=== PATIENT | female | born 1955 | race Caucasian/White ===

== ENCOUNTER 2017-01-20 11:16 | Inpatient (IN) | payer OTHER ==
--- NOTE | ~2017-01-20 | DS ---
Unit #: [id number] #: [id number] Patient: NEETU FAROOQ [id number] [address] [place], [place] [address] [id number] I MR#: [id number] NAME: NEETU FAROOQ ROOM: 551 Age: 61 Sex: F Admission Date: 01/20/2017 : 1955 Discharge Date: 01/30/2017 Attending Physician: Gokul Chavarria M.D. Primary Care Physician: [facility] DISCHARGE SUMMARY ADDENDUM ADMITTING DIAGNOSES 1. Acute hypoxemic respiratory failure, slow to improve. 2. History of smoking. 3. History of chronic obstructive pulmonary disease. COMMUNITY SERVICE SPECIALIST Dr. Yang. Kindly note, I did a discharge summary on January 26, 2017, and this is an addendum to that discharge summary. Patient was slow to improve. She was on high-dose of steroids. As she was slow to improve to make sure she does not have any PE, she did have a CT angiogram of the chest which came back as negative for PE. She is doing clinically better, and she has a bed in [facility]. The plan is to discharge her to [facility] for further care. I spoke with the patient and she is agreeable for that. PHYSICAL EXAMINATION On the day of the discharge, her physical examination: VITAL SIGNS: Temperature 97.8, pulse rate 54, respirations 16, blood pressure 111/54. GENERAL: Patient is alert, oriented x3, lying in the bed in no acute distress. HEENT: Normocephalic and atraumatic. No icterus. PERRLA. Extraocular muscles intact. NECK: Supple. No JVD. HEART: S1, S2. Bradycardic. CHEST: Bilateral equal air entry. Clear to auscultation. ABDOMEN: Soft, nontender. EXTREMITIES: No edema. Normal pulses. DISCHARGE MEDICATIONS 1. Slow tapering of prednisone. 2. Albuterol 3 mL nebulizations q.2 p.r.n. for shortness of breath. 3. Budesonide formoterol one puff twice a day. 4. Tylenol p.r.n. 5. Spiriva 18 mcg inhalation daily. 6. Tessalon Perles p.r.n. 7. Robitussin syrup 10 mL q.6 p.r.n. for cough. 8. Nicotine 14 mg topical patch daily. 9. Dulera 200/5 mcg inhalation two puffs twice daily. Unit #: [id number] #: [id number] Patient: NEETU FAROOQ 10. Lasix 40 mg twice a day. 11. Humibid LA 600 mg twice a day. 12. Phenol spray for sore throat. 13. Protonix 40 mg daily. 14. [place] Nasal [place]. FOLLOWUP The patient is requested to follow with her primary care after discharge from [facility]. In [facility], if possible please request that pulmonary also to evaluate the patient. I spoke with the spring encaser and she has arranged for the transportation. Total time spent in her discharge, 35 minutes. Dictated by... Wilbert Martines TD: 01/30/2017 11:58 JOB #: [id number] DISCHARGE SUMMARY Page 1 of 1 X X DISCHARGE SUMMARY
--- NOTE | ~2017-01-20 | CR72 ---
[facility] A Service of [facility] & [facility] RADIOLOGY TEXT RESULTS PATIENT: NEETU FAROOQ LOCATION: [place] [address] : [birth year] UNIT #: [id number] AGE: [address]: Gokul Chavarria MD SEX: F ORDER DR: [id number] [facility] [address] [facility]. [place], [place] [address] [id number] I MR#: [id number] Acc #: [id number] NAME: NEETU FAROOQ : 1955 SEX: F STUDY DATE/TIME: 01/22/2017 4:39 UNIT: [facility] ROOM: [facility] STUDY DESCRIPTION: CR Chest Single View Portable Attending Physician: Gokul Chavarria M.D. Ordering Physician: Aditi Yang M.D. Primary Care Physician: [facility] MEDICAL IMAGING REPORT This report is preliminary unless electronic signature is present EXAM AP portable chest 01/22/2017 HISTORY 61-year-old female complaining of 4-5 day history of shortness of air, weakness and cough. Follow up inpatient pulmonary status. TECHNIQUE AP portable upright chest x-ray. FINDINGS The exam shows no change since yesterday. Stable mild cardiomegaly with normal pulmonary vascularity. No pulmonary infiltrate or pleural effusion. IMPRESSION No active disease. Stable mild cardiomegaly. Dictated by... Misael Johnson M.D. THIS IS AN ELECTRONICALLY VERIFIED REPORT Misael Johnson M.D. at 01/22/2017 9:53 PM DUNCAN/ronnie TD: 01/22/2017 06:59 JOB #: [id number] MEDICAL IMAGING REPORT Page 1 of 1 COPY
--- NOTE | ~2017-01-20 | BMI ---
[facility] Nutrition Therapy DATE: 01/21/17 Patient: NEETU FAROOQ Physician: MARNIE Address: [address] Room/Bed: [address] [place] [address], Zip: [place] [address] Admit Date: 01/20/17 Date of : [birth year] Height: 5 0 Weight: 217 98.6 HIGH BMI NOTE: DX: 61 y/o female admitted with SOA ANTHROPOMETRICS: Ht: 60", Wt: 98.6 kg, BMI: 24.4 (normal) DIET: Healthy heart INTERVENTION: Restricted diet, meds/fluids per MD RECOMMENDATIONS: Continue current diet to promote a gradual weight loss towards a healthy BMI range. Respectfully, Basia Marina RD, LD Food and Nutritional Services [facility] cc: client file
--- NOTE | ~2017-01-20 | CO ---
Unit #: [id number] #: [id number] Patient: ODALIS FAROOQ [id number] [address] [address] [id number] I MR#: [id number] NAME: ODALIS FAROOQ. ROOM: 26253 Age: 61 Sex: F Admission Date: 01/20/2017 : 1955 Attending Physician: Odalis Blackmon M.D. Primary Care Physician: [facility]. CONSULTATION REPORT REASON FOR CONSULTATION Respiratory failure. CHIEF COMPLAINT Shortness of breath. HISTORY OF PRESENT ILLNESS A 61-year-old female with past medical history of COPD, chronic respiratory failure, presented to the emergency department with complaint of shortness of breath for the last two to three days. Symptoms have been getting worse. The patient was found to be hypoxic. I am seeing the patient at the bedside. PAST MEDICAL HISTORY Respiratory failure, COPD exacerbation. PAST SURGICAL HISTORY Appendectomy. SOCIAL HISTORY The patient lives with . FAMILY HISTORY Positive for COPD. ALLERGIES Potassium chloride and aspirin. HOME MEDICATION 1. Lasix. 2. Spiriva. 3. Albuterol. 4. Symbicort. PHYSICAL EXAMINATION VITAL SIGNS: Temperature 98. Pulse 87. Respiration 12. Blood pressure 130/70. NEUROLOGIC: Awake, alert, oriented. No neuro deficit. HEENT: PERRLA. NECK: Supple. No JVD. CHEST: Bilateral air entry. Bilateral mild rhonchi. GASTROINTESTINAL: Nontender. Soft. Positive bowel sounds. EXTREMITIES: No edema. Unit #: [id number] #: [id number] Patient: ODALIS FAROOQ DIAGNOSTIC STUDIES Labs and imaging have been reviewed. ASSESSMENT AND PLAN Acute hypoxic, hypercapnic respiratory failure, acute exacerbation of COPD, acute bronchitis, volume overload. The plan is to continue the patient on IV steroid, IV antibiotic, bronchodilator and diuretic. Please see orders for detailed plan. Thank you very much for this consultation. We will continue to follow the patient. Dictated by... Aditi Yang M.D. Yfn TD: 01/20/2017 16:36 JOB #: [id number] CONSULTATION REPORT Page 1 of 1 X Aditi Yang MD CONSULTATION REPORT
--- NOTE | ~2017-01-20 | EKG ---
PATIENT: NEETU FAROOQ UNIT #: [id number] Ventricular Rate: 84 BPM Atrial Rate: 84 BPM P-R Interval: 138 ms QRS Duration: 78 ms Q-T Interval: 350 ms QTC Calculation(Bezet): 413 ms P [place]: 66 degrees Calculated R [place]: 126 degrees Calculated T [place]: 66 degrees Diagnosis Line: Normal sinus rhythm Diagnosis Line: Right axis deviation Diagnosis Line: Abnormal ECG Diagnosis Line: When compared with ECG of 09-OCT-2016 14:35, Diagnosis Line: Premature ventricular complexes are no longer Diagnosis Line: Present Diagnosis Line: Questionable change in QRS axis Diagnosis Line: Confirmed by DAMARI SCHROEDER MD ([id number]) on Diagnosis Line: 01/20/2017 12:53:31 PM INTERPRETING MD: LUPILLO
--- NOTE | ~2017-01-20 | HP ---
Unit #: [id number] #: [id number] Patient: ODALIS FAROOQ [id number] [address] [address] [id number] I MR#: [id number] NAME: ODALIS FAROOQ ROOM: 46709 Age: 61 Sex: F Admission Date: 01/20/2017 : 1955 Attending Physician: Odalis Balckmon M.D. Primary Care Physician: [facility] HISTORY AND PHYSICAL CHIEF COMPLAINT Short of air. HISTORY OF PRESENT ILLNESS The patient is a 61-year-old female, with past medical history of chronic obstructive pulmonary disease, chronic respiratory failure, who presented to the emergency department for evaluation of the above. The patient states that she has had a one day of increasing shortness of breath and productive cough. She denies any chest pain. She states that she has had chills but no documented fever. She continues to smoke. She reports nausea but no vomiting. Upon arrival in the emergency department, the patient's oxygen saturation was 82% on her home three liters. Chest x-ray showed nothing acute. She was given 125 mg of Solu-Medrol. She is being admitted to [facility] for evaluation and further treatment. PAST MEDICAL HISTORY 1. Admission to [facility], May 13, 2016 for chronic obstructive pulmonary disease exacerbation requiring intubation. 2. Chronic respiratory failure on three liters of oxygen per nasal cannula followed by Dr. Iván M.D. 3. Chronic obstructive pulmonary disease. PAST SURGICAL HISTORY Appendectomy. SOCIAL HISTORY The patient lives with her . She continues to smoke a few cigarettes daily. She denies alcohol use. She is unemployed. Her code status is a fully code. FAMILY HISTORY Notable for both parents having chronic obstructive pulmonary disease. ALLERGIES Potassium chloride, aspirin. HOME MEDICATIONS 1. Furosemide 40 mg daily p.r.n. 2. Spiriva inhaled daily Unit #: [id number] #: [id number] Patient: ODALIS FAROOQ 3. Albuterol four times daily 4. Symbicort 160/4.5 inhaled twice daily REVIEW OF SYSTEMS A complete review of systems is negative except as indicated in the history of present illness. The patient states that she was told that she had congestive heart failure during the last admission. I don't see an echocardiogram in [facility]. The patient states that she has had intermittent lower extremity swelling. The patient denies recent antibiotic or steroid use. She states that she did receive a flu shot in the fall. DIAGNOSTIC TESTS CARDIOVASCULAR: EKG shows normal sinus rhythm with a rate of 84 beats per minute. IMAGING: Chest x-ray shows no acute abnormality. LABORATORY: Troponin is less than 0.05. Complete blood count notable for a blood cell count of 11.4. Comprehensive metabolic panel notable for a chloride of 93, bicarb is 32, BUN and creatinine 8 and 0.6 respectively, BNP is 30. PHYSICAL EXAMINATION VITAL SIGNS: Temperature is 98.6, pulse 96, respirations 25, blood pressure 131/54. Oxygen saturation is 82% on three liters. GENERAL: The patient is a female who is awake and alert, and in no acute distress. HEENT: Head: Atraumatic. Mucous membranes are moist. NECK: Neck is supple. Trachea is midline. CARDIOVASCULAR: Regular rate and rhythm. LUNGS: Lungs demonstrate inspiratory and expiratory wheezes, breathing is mildly labored with conversation. ABDOMEN: Soft, nontender, with bowel sounds present in all four quadrants. EXTREMITIES: Showed trace edema. NEUROLOGIC: The patient is awake and alert. She follows commands. PSYCH: Mood and affect are normal. The patient is cooperative. SKIN: Skin of examined areas is warm and dry. ASSESSMENT The patient is a 61-year-old female with: 1. Tqmsu-no-rgriwes respiratory failure, hypoxic. 2. Chronic obstructive pulmonary disease exacerbation. 3. Tobacco abuse. 4. Possible history of congestive heart failure (no echocardiogram results in [facility]). PLAN 1. Admit to intermediate level. 2. Healthy heart diet. 3. Supplemental oxygen, 2-4 liters to maintain saturations greater than 92%. 4. DuoNebs q.4h while awake and q.2h p.r.n. 5. Solu-Medrol 80 mg IV q.12h 6. Mucinex 600 mg p.o. b.i.d. 7. Doxycycline 100 mg p.o. b.i.d. for possible acute bronchitis. 8. Consult Dr. Yang regarding vlcji-lj-uvkuzoq respiratory failure. Unit #: [id number] #: [id number] Patient: ODALIS FAROOQ 9. Serial cardiac enzymes. 10. Get 2D echo report from last admission (April 2016). 11. SCDs for DVT prophylaxis. 12. Protonix for GI prophylaxis since the patient will be on Solu-Medrol. 13. Repeat labs in the morning. 14. Additional workup and consultants based on above. 15. Regarding code status, the patient is a full code. Dictated by Wilbert Nova/renan TD: 01/20/2017 14:03 JOB #: [id number] HISTORY AND PHYSICAL Page 1 of 1 X Odalis Blackmon MD X HISTORY AND PHYSICAL
--- NOTE | ~2017-01-20 | CT16 ---
[facility] A Service [facility] RADIOLOGY TEXT RESULTS PATIENT: NEETU FAROOQ LOCATION: [facility] : [birth year] UNIT #: [id number] AGE: [address]: Gokul Chavarria MD SEX: F ORDER DR: [id number] [facility] [address] [facility]. [place], [place] [address] [id number] I MR#: [id number] Acc #: [id number] NAME: NEETU FAROOQ : 1955 SEX: F STUDY DATE/TIME: 01/28/2017 15:52 UNIT: [facility] ROOM: [facility] STUDY DESCRIPTION: CT Angio Chest for PE Attending Physician: Gokul Chavarria M.D. Ordering Physician: Gokul Chavarria M.D. MEDICAL IMAGING REPORT This report is preliminary unless electronic signature is present EXAM CT scan of the chest with pulmonary embolus protocol HISTORY Shortness of air for a week. TECHNIQUE Patient was given 80 cc of Isovue-370 and spiral imaging was performed through the chest. 3-D reconstructions of the pulmonary arteries were generated. This CT exam was performed with one or more of the following radiation dose reduction techniques: automatic exposure control, adjustment of mA and/or kV according to patient size, and iterative reconstruction. COMPARISON STUDIES 05/15/2016. FINDINGS There is mild bibasilar atelectasis. Lungs are otherwise clear. Visualized thyroid gland is normal. The aorta is normal in size and no dissection. There is optimal opacification of the pulmonary arteries and there is no evidence of pulmonary embolus. The bones are unremarkable. The visualized portions of the upper abdomen are normal. IMPRESSION 1. Mild bibasilar atelectasis. 2. No evidence of pulmonary embolus. 3. Otherwise, normal. [facility] A Service [facility] RADIOLOGY TEXT RESULTS PATIENT: NEETU FAROOQ LOCATION: [facility] 5509-30 : 57 UNIT #: [id number] AGE: [address]: Gokul Chavarria MD SEX: F ORDER DR: Dictated by... Marcos Kirk M.D. THIS IS AN ELECTRONICALLY VERIFIED REPORT Marcos Kirk M.D. at 01/28/2017 8:02 PM FEL/pcl TD: 01/28/2017 18:35 JOB #: [id number] MEDICAL IMAGING REPORT Page 1 of 1 COPY
--- NOTE | ~2017-01-20 | CR72 ---
[facility] A Service of [facility] & [facility] RADIOLOGY TEXT RESULTS PATIENT: ODALIS FAROOQ LOCATION: [place] [address] : 57 UNIT #: [id number] AGE: [address]: Gokul Chavarria MD SEX: F ORDER DR: [id number] [facility] [address] [facility]. [place], [place] [address] [id number] I MR#: [id number] Acc #: [id number] NAME: ODALIS FAROOQ : 1955 SEX: F STUDY DATE/TIME: 01/21/2017 10:21 UNIT: [facility] ROOM: [facility] STUDY DESCRIPTION: CR Chest Single View Portable Attending Physician: Gokul Chavarria M.D. Ordering Physician: Odalis Blackmon M.D. [facility] MEDICAL IMAGING REPORT This report is preliminary unless electronic signature is present EXAM Chest portable, 01/21/2017 10:21 hours HISTORY 61-year-old with 3-day history of shortness of air, weakness and cough. History of CHF and asthma. COMPARISON 01/20/2017 FINDINGS Portable upright chest demonstrates stable rvnb-nf-dasldmvf cardiomegaly. Mediastinal, hilar and aortic contours are normal. The lungs are well expanded and clear of acute densities. Benign calcified granulomata are present. IMPRESSION Stable mild cardiomegaly and calcified granulomatous change. There are no acute pulmonary or pleural findings. Dictated by... Nata Odom M.D. THIS IS AN ELECTRONICALLY VERIFIED REPORT Nata Odom M.D. at 01/21/2017 2:28 PM Tony TD: 01/21/2017 10:58 JOB #: [id number] MEDICAL IMAGING REPORT Page 1 of 1 COPY
--- NOTE | ~2017-01-20 | EKG ---
PATIENT: NEETU FAROOQ UNIT #: [id number] Ventricular Rate: 68 BPM Atrial Rate: 68 BPM P-R Interval: 140 ms QRS Duration: 82 ms Q-T Interval: 396 ms QTC Calculation(Bezet): 421 ms P [place]: 58 degrees Calculated R [place]: 101 degrees Calculated T [place]: 61 degrees Diagnosis Line: Normal sinus rhythm Diagnosis Line: Rightward axis Diagnosis Line: Borderline ECG Diagnosis Line: When compared with ECG of 20-JAN-2017 10:50, Diagnosis Line: No significant change was found Diagnosis Line: Confirmed by DAMARI SCHROEDER MD ([id number]) on Diagnosis Line: 01/27/2017 8:54:58 AM INTERPRETING MD: LUPILLO
--- NOTE | ~2017-01-20 | CR71 ---
[facility] A Service of [facility] & [facility] RADIOLOGY TEXT RESULTS PATIENT: NEETU FAROOQ LOCATION: [place] [address] : [birth year] UNIT #: [id number] AGE: [address]: Gokul Chavarria MD SEX: F ORDER DR: [id number] [facility] [address] [facility]. [place], [place] [address] [id number] I MR#: [id number] Acc #: [id number] NAME: NEETU FAROOQ : 1955 SEX: F STUDY DATE/TIME: 01/23/2017 09:39 UNIT: [facility] ROOM: [facility] STUDY DESCRIPTION: CR Chest Single View Attending Physician: Gokul Chavarria M.D. Ordering Physician: Aditi Yang M.D. Primary Care Physician: [facility] MEDICAL IMAGING REPORT This report is preliminary unless electronic signature is present EXAM Chest portable, 01/23/2017 09:39 hours HISTORY 61-year-old woman with shortness of air, cough and COPD. Symptoms since 01/20/2017. COMPARISON 01/22/2017 FINDINGS Portable upright chest demonstrates stable mild cardiomegaly. The lungs are well expanded with stable calcified granulomata. No acute pulmonary or pleural findings. IMPRESSION Stable benign calcified granulomatous changes. No acute cardiopulmonary findings. No appreciable change from yesterday's exam. Dictated by... Nata Odom M.D. THIS IS AN ELECTRONICALLY VERIFIED REPORT Nata Odom M.D. at 01/23/2017 2:29 PM Tony TD: 01/23/2017 14:05 JOB #: [id number] MEDICAL IMAGING REPORT Page 1 of 1 COPY
--- NOTE | ~2017-01-20 | DS ---
Unit #: [id number] #: [id number] Patient: NEETU FAROOQ [id number] [address] [address] [id number] I MR#: [id number] NAME: NEETU FAROOQ ROOM: 55 Age: 61 Sex: F Admission Date: 01/20/2017 : 1955 Discharge Date: 01/26/2017 Attending Physician: Gokul Chavarria M.D. [facility] SUMMARY CONSULTING Dr. Yang ADMITTING DIAGNOSIS Acute hypoxic respiratory failure secondary to chronic obstructive pulmonary disease exacerbation and slow to improve. DISCHARGE DIAGNOSIS Same as above. HISTORY OF PRESENT ILLNESS Patient is a 61-year-old lady with a past medical history of COPD, history of smoking, chronic respiratory failure. Presented to the emergency room with the chief complaint of cough and shortness of breath on the . HOSPITAL COURSE She was started on oxygen. She was started on (1) steroids, p.r.n. breathing treatments. She was slow to improve. She was on BiPAP for a prolonged period, and currently she is off the BiPAP. She is still requiring 8 liters of oxygen. Pulmonary recommended to discharge her to pulmonary rehab. We are trying to arrange for her discharge to rehab today. PHYSICAL EXAMINATION ON THE DAY OF DISCHARGE VITAL SIGNS: Temperature 97.9, pulse rate 57, respirations 20, blood pressure 104/75. GENERAL: The patient is alert and oriented x3, lying in bed, no acute distress. HEENT: Normocephalic, atraumatic. No icterus. PERRLA. Extraocular muscles intact. NECK: Supple. No JVD. HEART: S1, S2. Regular rate and rhythm. CHEST: Bilateral equal air entry. Clear to auscultation. ABDOMEN: Soft, nontender. EXTREMITIES: No edema. Normal pulses. DISCHARGE MEDICATIONS 1. Prednisone tapering dose. 2. Albuterol 3 mL nebulizations q.4-6 p.r.n. shortness of breath. 3. Ventolin 2 puffs q.6 p.r.n. shortness of breath. 4. Symbicort 160/4.5 mcg 1 puff b.i.d. 5. Spiriva 18 mcg inhalation daily. 6. Tessalon Perles 100 mg t.i.d. p.r.n. cough. 7. Robitussin p.r.n. cough. Unit #: [id number] #: [id number] Patient: NEETU FAROOQ 8. Nicotine 14 mg topical patch every evening. 9. Lasix 40 mg p.o. daily. 10. Humibid LA 600 mg b.i.d. 11. Protonix 40 mg daily. 12. [place] Nasal [place] at bedside q.4 hours p.r.n. 13. Dulera 200 mcg/5 mcg inhaler 2 puffs b.i.d. FOLLOWUP She is instructed to follow with pulmonary as an outpatient. NOTE: Total time spent in her discharge - 35 minutes. Dictated by... Wilbert Martines TD: 01/26/2017 13:26 JOB #: [id number] DISCHARGE SUMMARY Page 1 of 1 X X DISCHARGE SUMMARY
--- NOTE | ~2017-01-20 | CR72 ---
[facility] A Service of [facility] RADIOLOGY TEXT RESULTS PATIENT: NEETU FAROOQ LOCATION: [address] : [birth year] UNIT #: [id number] AGE: [address]: Gokul Chavarria MD SEX: F ORDER DR: [id number] [facility] [address] [facility]. [place], [place] [address] [id number] E MR#: [id number] Acc #: [id number] NAME: NEETU FAROOQ : 1955 SEX: F STUDY DATE/TIME: 01/20/2017 11:03 UNIT: [facility] ROOM: STUDY DESCRIPTION: CR Chest Single View Portable Attending Physician: Michele Patiño Ordering Physician: Ed Doctor [id number] [facility] Primary Care Physician: [facility] MEDICAL IMAGING REPORT This report is preliminary unless electronic signature is present EXAM Portable chest INDICATIONS Shortness of air and cough today. PROCEDURE Frontal view of the chest. COMPARISON 10/09/2016 FINDINGS Heart size is probably unchanged when allowing for rotation. There is no dense consolidation, effusion or pneumothorax. IMPRESSION Stable cardiomegaly. No active process. Dictated by... Gagandeep Allen M.D. THIS IS AN ELECTRONICALLY VERIFIED REPORT Gagandeep Allen M.D. at 01/21/2017 9:43 AM ALETHEA/tamica TD: 01/20/2017 13:25 JOB #: [id number] MEDICAL IMAGING REPORT Page 1 of 1 COPY
[~2017-01-20 11:16] MED LIST: ALBUTEROL MININEB NEB; DELTASONE20 MG PO; LASIX PO; LASIX20 MG PO; MORGIDOX100 MG PO; NICOTINE P1 PATCH .1 TD; PREDNISONE PO; PROVENTIL2 MG; SYMBICORT INH; VENTOLIN5 MG/ML INH; [UNRECOGNIZED DRUG - OTHER]
[2017-01-20 11:30] LABS: POC - CKMB 2.2 ng/mL (0.0-7.9); POC - TROPONIN <0.05 ng/mL (<=0.05)
[2017-01-20 11:33] LABS: BASOPHIL# 0.1 X10e3 (0-0.3); BASOPHIL% 0.5 % (0-2.5); EOSINOPHIL# 0.1 X10e3 (0-0.7); HEMATOCRIT 44.3 % (35.0-45.0); HEMOGLOBIN 14.2 gm/dL (12.0-16.0); LYMPHOCYTE# 1.9 X10e3 (1.0-3.5); LYMPHOCYTE% 16.4 % (17.0-45.0); MEAN CELL VOLUME 91.9 FL (83-96); MEAN CORPUSCULAR HEMOGLOBIN 29.5 PG (28-34); MEAN CORPUSCULAR HGB CONC 32.1 g/dL (30-36); MEAN PLATELET VOLUME 9.7 FL (6.5-11.5); MONOCYTE# 1.4 X10e3 (0-1.0); MONOCYTE% 12.4 % (3.0-12.0); NEUTROPHIL# 7.9 X10e3 (1.5-7.1); NEUTROPHIL% 69.7 % (40-75); PLATELET COUNT 220 X10e3 (140-420); RED BLOOD COUNT 4.82 X10e (3.90-5.30); RED CELL DISTRIBUTION WIDTH 14.1 % (11.0-15.5); WHITE BLOOD COUNT 11.4 X10e3 (4.0-10.5)
[2017-01-20 11:35] LABS: DIFF IND NO
[2017-01-20 11:51] LABS: ALBUMIN SERUM 4.3 g/dL (3.5-5.0); BILIRUBIN, DIRECT 0.1 mg/dL (0.0-0.2); BILIRUBIN,INDIRECT 0.5 mg/dL (0.0-0.9); BILIRUBIN,TOTAL 0.6 mg/dL (0.2-2.0); BUN/CREATININE RATIO 13.33; CALCIUM SERUM 9.3 mg/dL (8.4-10.2); CREATININE SERUM 0.6 mg/dL (0.6-1.4); GLOM FILT RATE Estimated 99.1 mL/min (>60); POTASSIUM 3.9 mmol/L (3.5-5.1); PROTEIN TOTAL SERUM 7.5 g/dL (6.0-8.3)
[2017-01-20] MEDS ORDERED: ALBUTEROL MININEB NEB (12:49)
[2017-01-20] MEDS ORDERED: SPIRIVA18 MCG INH (12:49)
[2017-01-20] MEDS ORDERED: FUROSEMIDE40 MG PO (12:49)
[2017-01-20] MEDS ORDERED: SYMBICORT INH (12:50)
[2017-01-20] MEDS ORDERED: ALBUTEROL17 GM INH (12:50)
[2017-01-20 19:14] LABS: %MB 6.3 % (0.0-4.0); MB 8.3 ng/ml
[2017-01-21 01:42] LABS: %MB 4.4 % (0.0-4.0); MB 11.1 ng/ml
[2017-01-21 04:53] LABS: INFLUENZA A NEG (NEG); INFLUENZA B NEG (NEG)
[2017-01-21 05:04] LABS: ARTERIAL BLD GAS O2 SATURATION 96.1 % (90.0-100.0); ARTERIAL BLOOD GAS MET HB 0.6 %sat (0.0-2.0); ARTERIAL BLOOD GAS pH 7.256 (7.350-7.450)
[2017-01-21 05:09] LABS: ARTERIAL BLOOD GAS ALLEN TEST NORMAL; ARTERIAL BLOOD GAS ART SITE LEFT RADIAL; ARTERIAL BLOOD GAS DELIVERY OXYMIZER; ARTERIAL BLOOD GAS PCO2 90.1 mmHg (35.0-45.0); ARTERIAL DRAW? YES
[2017-01-21 06:28] LABS: BASOPHIL% 0.2 % (0-2.5); HEMOGLOBIN 13.7 gm/dL (12.0-16.0); LYMPHOCYTE# 0.8 X10e3 (1.0-3.5); LYMPHOCYTE% 7.1 % (17.0-45.0); MEAN CELL VOLUME 91.1 FL (83-96); MEAN CORPUSCULAR HEMOGLOBIN 29.7 PG (28-34); MEAN CORPUSCULAR HGB CONC 32.6 g/dL (30-36); MEAN PLATELET VOLUME 9.3 FL (6.5-11.5); MONOCYTE# 0.3 X10e3 (0-1.0); MONOCYTE% 2.5 % (3.0-12.0); NEUTROPHIL# 9.7 X10e3 (1.5-7.1); NEUTROPHIL% 90.2 % (40-75); PLATELET COUNT 208 X10e3 (140-420); RED BLOOD COUNT 4.61 X10e (3.90-5.30); RED CELL DISTRIBUTION WIDTH 13.9 % (11.0-15.5); WHITE BLOOD COUNT 10.8 X10e3 (4.0-10.5)
[2017-01-21 06:37] LABS: DIFF IND NO
[2017-01-21 07:06] LABS: BILIRUBIN,TOTAL 0.5 mg/dL (0.2-2.0); BUN/CREATININE RATIO 23.33; CALCIUM SERUM 9.7 mg/dL (8.4-10.2); CREATININE SERUM 0.6 mg/dL (0.6-1.4); GLOM FILT RATE Estimated 99.1 mL/min (>60); POTASSIUM 4.5 mmol/L (3.5-5.1)
[2017-01-21 07:29] LABS: ARTERIAL BLD GAS O2 SATURATION 84.2 % (90.0-100.0); ARTERIAL BLOOD GAS CARBOXY HB 1.7 %sat (0.0-9.0); ARTERIAL BLOOD GAS HCO3 39.9 mmol/L; ARTERIAL BLOOD GAS MET HB 1.1 %sat (0.0-2.0); ARTERIAL BLOOD GAS pH 7.282 (7.350-7.450)
[2017-01-21 07:34] LABS: ARTERIAL BLOOD GAS ALLEN TEST NORMAL; ARTERIAL BLOOD GAS ART SITE RIGHT RADIAL; ARTERIAL BLOOD GAS DELIVERY BIPAP 14/6; ARTERIAL BLOOD GAS PCO2 84.7 mmHg (35.0-45.0); ARTERIAL BLOOD GAS PO2 68.8 mmHg (80.0-100); ARTERIAL DRAW? YES
[2017-01-21 13:03] LABS: ARTERIAL BLD GAS O2 SATURATION 94.2 % (90.0-100.0); ARTERIAL BLOOD GAS ALLEN TEST NORMAL; ARTERIAL BLOOD GAS ART SITE RIGHT RADIAL; ARTERIAL BLOOD GAS CARBOXY HB 0.6 %sat (0.0-9.0); ARTERIAL BLOOD GAS DELIVERY BIPAP 14/6; ARTERIAL BLOOD GAS HCO3 39.9 mmol/L; ARTERIAL BLOOD GAS MET HB 0.9 %sat (0.0-2.0); ARTERIAL BLOOD GAS PCO2 78.9 mmHg (35.0-45.0); ARTERIAL BLOOD GAS PO2 81.1 mmHg (80.0-100); ARTERIAL BLOOD GAS pH 7.312 (7.350-7.450); ARTERIAL DRAW? YES
[2017-01-22 04:16] LABS: ARTERIAL BLD GAS O2 SATURATION 96.7 % (90.0-100.0); ARTERIAL BLOOD GAS CARBOXY HB 0.5 %sat (0.0-9.0); ARTERIAL BLOOD GAS HCO3 44.6 mmol/L; ARTERIAL BLOOD GAS MET HB 0.7 %sat (0.0-2.0); ARTERIAL BLOOD GAS PO2 92.6 mmHg (80.0-100); ARTERIAL BLOOD GAS pH 7.321 (7.350-7.450)
[2017-01-22 04:59] LABS: HEMATOCRIT 42.1 % (35.0-45.0); HEMOGLOBIN 13.3 gm/dL (12.0-16.0); MEAN CELL VOLUME 92.5 FL (83-96); MEAN CORPUSCULAR HEMOGLOBIN 29.2 PG (28-34); MEAN CORPUSCULAR HGB CONC 31.6 g/dL (30-36); MEAN PLATELET VOLUME 9.4 FL (6.5-11.5); MONOCYTE# 0.8 X10e3 (0-1.0); MONOCYTE% 4.1 % (3.0-12.0); NEUTROPHIL# 17.4 X10e3 (1.5-7.1); NEUTROPHIL% 90.9 % (40-75); PLATELET COUNT 243 X10e3 (140-420); RED BLOOD COUNT 4.55 X10e (3.90-5.30); RED CELL DISTRIBUTION WIDTH 14.3 % (11.0-15.5); WHITE BLOOD COUNT 19.2 X10e3 (4.0-10.5)
[2017-01-22 04:59] LABS: ARTERIAL BLOOD GAS ALLEN TEST NORMAL; ARTERIAL BLOOD GAS ART SITE LEFT RADIAL; ARTERIAL BLOOD GAS PCO2 86.3 mmHg (35.0-45.0); ARTERIAL DRAW? YES
[2017-01-22 05:00] LABS: DIFF IND YES
[2017-01-22 05:00] LABS: ARTERIAL BLOOD GAS DELIVERY BIPAP 14/6 R18
[2017-01-22 05:14] LABS: ALBUMIN SERUM 3.8 g/dL (3.5-5.0); BILIRUBIN,TOTAL 0.3 mg/dL (0.2-2.0); BUN/CREATININE RATIO 46.66; CALCIUM SERUM 9.7 mg/dL (8.4-10.2); CREATININE SERUM 0.6 mg/dL (0.6-1.4); GLOM FILT RATE Estimated 99.1 mL/min (>60); PROTEIN TOTAL SERUM 6.7 g/dL (6.0-8.3)
[2017-01-22 06:28] LABS: PLATELET ESTIMATE NORMAL (NORMAL)
[2017-01-22 06:29] LABS: RBC NORMAL YES
[2017-01-23 03:47] LABS: ARTERIAL BLOOD GAS CARBOXY HB 0.6 %sat (0.0-9.0); ARTERIAL BLOOD GAS HCO3 49.3 mmol/L; ARTERIAL BLOOD GAS MET HB 0.7 %sat (0.0-2.0); ARTERIAL BLOOD GAS pH 7.369 (7.350-7.450)
[2017-01-23 03:50] LABS: ARTERIAL BLOOD GAS PCO2 85.5 mmHg (35.0-45.0); ARTERIAL BLOOD GAS PO2 74.9 mmHg (80.0-100)
[2017-01-23 03:51] LABS: ARTERIAL BLOOD GAS ALLEN TEST NORMAL; ARTERIAL BLOOD GAS ART SITE LEFT RADIAL; ARTERIAL BLOOD GAS DELIVERY OXYMIZER; ARTERIAL DRAW? YES
[2017-01-23 05:38] LABS: BASOPHIL# 0.1 X10e3 (0-0.3); BASOPHIL% 0.6 % (0-2.5); HEMOGLOBIN 13.3 gm/dL (12.0-16.0); LYMPHOCYTE# 0.9 X10e3 (1.0-3.5); LYMPHOCYTE% 5.1 % (17.0-45.0); MEAN CELL VOLUME 92.5 FL (83-96); MEAN CORPUSCULAR HEMOGLOBIN 29.3 PG (28-34); MEAN CORPUSCULAR HGB CONC 31.7 g/dL (30-36); MEAN PLATELET VOLUME 9.8 FL (6.5-11.5); MONOCYTE# 0.4 X10e3 (0-1.0); MONOCYTE% 2.3 % (3.0-12.0); NEUTROPHIL# 15.4 X10e3 (1.5-7.1); PLATELET COUNT 237 X10e3 (140-420); RED BLOOD COUNT 4.54 X10e (3.90-5.30); WHITE BLOOD COUNT 16.8 X10e3 (4.0-10.5)
[2017-01-23 05:40] LABS: DIFF IND NO
[2017-01-23 06:18] LABS: BILIRUBIN,TOTAL 0.4 mg/dL (0.2-2.0); BUN/CREATININE RATIO 58.57; CALCIUM SERUM 9.5 mg/dL (8.4-10.2); CREATININE SERUM 0.7 mg/dL (0.6-1.4); GLOM FILT RATE Estimated 94.2 mL/min (>60); POTASSIUM 4.7 mmol/L (3.5-5.1); PROTEIN TOTAL SERUM 6.7 g/dL (6.0-8.3)
[2017-01-23 06:43] LABS: ARTERIAL BLD GAS O2 SATURATION 90.6 % (90.0-100.0); ARTERIAL BLOOD GAS CARBOXY HB 0.7 %sat (0.0-9.0); ARTERIAL BLOOD GAS HCO3 49.2 mmol/L; ARTERIAL BLOOD GAS MET HB 0.7 %sat (0.0-2.0); ARTERIAL BLOOD GAS pH 7.411 (7.350-7.450)
[2017-01-23 06:46] LABS: ARTERIAL BLOOD GAS ALLEN TEST NORMAL; ARTERIAL BLOOD GAS ART SITE LEFT RADIAL; ARTERIAL BLOOD GAS DELIVERY BIAPAP; ARTERIAL BLOOD GAS PCO2 77.4 mmHg (35.0-45.0); ARTERIAL BLOOD GAS PO2 61.6 mmHg (80.0-100); ARTERIAL DRAW? YES
[2017-01-24 06:07] LABS: CALCIUM SERUM 9.4 mg/dL (8.4-10.2); CREATININE SERUM 0.7 mg/dL (0.6-1.4); GLOM FILT RATE Estimated 94.2 mL/min (>60)
[2017-01-25 05:32] LABS: HEMATOCRIT 42.7 % (35.0-45.0); HEMOGLOBIN 13.5 gm/dL (12.0-16.0); MEAN CELL VOLUME 92.4 FL (83-96); MEAN CORPUSCULAR HEMOGLOBIN 29.3 PG (28-34); MEAN CORPUSCULAR HGB CONC 31.7 g/dL (30-36); MEAN PLATELET VOLUME 8.2 FL (6.5-11.5); RED BLOOD COUNT 4.62 X10e (3.90-5.30); RED CELL DISTRIBUTION WIDTH 13.9 % (11.0-15.5); WHITE BLOOD COUNT 11.3 X10e3 (4.0-10.5)
[2017-01-25 06:51] LABS: BUN/CREATININE RATIO 46.66; CALCIUM SERUM 8.7 mg/dL (8.4-10.2); CREATININE SERUM 0.6 mg/dL (0.6-1.4); GLOM FILT RATE Estimated 99.1 mL/min (>60); POTASSIUM 3.5 mmol/L (3.5-5.1)
[2017-01-26 06:11] LABS: HEMATOCRIT 42.5 % (35.0-45.0); HEMOGLOBIN 13.6 gm/dL (12.0-16.0); MEAN CELL VOLUME 91.4 FL (83-96); MEAN CORPUSCULAR HEMOGLOBIN 29.2 PG (28-34); MEAN CORPUSCULAR HGB CONC 31.9 g/dL (30-36); RED BLOOD COUNT 4.65 X10e (3.90-5.30); RED CELL DISTRIBUTION WIDTH 13.8 % (11.0-15.5); WHITE BLOOD COUNT 12.6 X10e3 (4.0-10.5)
[2017-01-26 06:42] LABS: BUN/CREATININE RATIO 51.66; CALCIUM SERUM 8.9 mg/dL (8.4-10.2); CREATININE SERUM 0.6 mg/dL (0.6-1.4); GLOM FILT RATE Estimated 99.1 mL/min (>60); POTASSIUM 3.9 mmol/L (3.5-5.1)
== END 2017-01-30 15:50 | DRG 189 ==
LOC: CED 11:16 → CEDOF 13:20 → C3A PCU 17:03 → CICCU2 01-21 09:05 → C5B 01-22 17:47
PROVIDERS: Emergency Medicine; Family Medicine; Internal Medicine
PROC: B32TYZZ Computerized Tomography (CT Scan) of Left Pulmonary Artery using Other Contrast (ICD-10-PCS; principal; 2017-01-28)
PROC: B32SYZZ Computerized Tomography (CT Scan) of Right Pulmonary Artery using Other Contrast (ICD-10-PCS; 2017-01-28)
DX: J96.21 Acute and chronic respiratory failure with hypoxia (principal); Z99.81 Dependence on supplemental oxygen; J44.0 Chronic obstructive pulmonary disease with (acute) lower respiratory infection; J44.1 Chronic obstructive pulmonary disease with (acute) exacerbation; Z68.41 Body mass index [BMI] 40.0-44.9, adult; F17.210 Nicotine dependence, cigarettes, uncomplicated; Z88.6 Allergy status to analgesic agent; J20.9 Acute bronchitis, unspecified; J96.22 Acute and chronic respiratory failure with hypercapnia; Z71.6 Tobacco abuse counseling; E66.01 Morbid (severe) obesity due to excess calories
CPT/HCPCS: 36415; 36600; 71010; 71275; 80048; 80053; 80061; 80076; 82550; 82553; 82803; 83880; 84484; 85025; 85027; 87804; 93005; 94640; 94660; 94760; 96374; 97110; 97116; 97162; 97166; 97535; 99285; J1940; J2920; J2930